=== PATIENT | male | born 1985 | race African-American/Black ===

== ENCOUNTER 2017-10-21 17:54 | Emergency (ER) | payer SELFPAY ==
[~2017-10-21] VITALS: Ht 193 cm; Wt 200.0 kg
[2017-10-21] MEDS ORDERED: IBUPROFEN 800MG TABLET PO ONE (19:00)
[2017-10-21 19:50] VITALS: BP 127/84
== END 2017-10-21 20:00 | disposition home or self-care (01) ==
LOC: ER 18:14
DX: M54.2 Cervicalgia (principal); M54.5 Low back pain; F12.10 Cannabis abuse, uncomplicated; V49.9XXA Car occupant (driver) (passenger) injured in unspecified traffic accident, initial encounter; Y93.89 Activity, other specified; Y92.410 Unspecified street and highway as the place of occurrence of the external cause; Y99.8 Other external cause status
CPT/HCPCS: 99283

== ENCOUNTER 2018-05-09 06:29 | Emergency (ER) | payer MEDICAID ==
[~2018-05-09] VITALS: Ht 177.8 cm; Wt 87.0 kg
[~2018-05-09 06:29] MED LIST: KEPP500 MT
[2018-05-09] MEDS ORDERED: LORAZEPAM 2MG/ML CPJ ONE (06:48)
[2018-05-09] MEDS ORDERED: LORAZEPAM 2MG/ML CPJ IV ONE (07:00)
[2018-05-09] MEDS ORDERED: SODIUM CHLORIDE 0.9% 1,000 ML IV ONE (07:00)
[2018-05-09 08:06] LABS: BASOPHILS % 0.7 % (0.0-2.0); EOSINOPHILS % 0.8 % (0.0-5.0); HEMATOCRIT. 42.6 % (42.0-52.0); HEMOGLOBIN. 14.3 g/dL (14.0-18.0); LYMPHOCYTES % 20.7 % (20.0-50.0); MEAN CORPUSCULAR HEMOGLOBIN 27.7 pg (28.0-32.0); MEAN CORPUSCULAR VOLUME 82.4 fL (80.0-94.0); MEAN PLATELET VOLUME 8.2 fl (7.4-10.4); MONOCYTES % 8.4 % (2.0-8.0); NEUTROPHILS % 69.4 % (40.0-76.0); PLATELET 282 x1000/uL (130-400); RED BLOOD CELL COUNT 5.17 mill/uL (4.7-6.1); RED CELL DISTRIBUTION WIDTH 15.4 % (11.6-14.6)
[2018-05-09 08:12] LABS: CHLORIDE 106 mEq/L (98-107)
[2018-05-09 08:19] LABS: ETHANOL BLOOD < 10 mg/dL
[2018-05-09 08:23] LABS: CREATINE KINASE 290 IU/L (39-308)
[2018-05-09 08:34] LABS: CARBAMAZEPINE < 0.5 ug/mL (4-12); PHENOBARBITAL < 2.1 ug/mL (15.0-40.0); VALPROIC ACID < 3.0 ug/mL (50-100)
[2018-05-09] MEDS ORDERED: SODIUM CHLORIDE 0.9% 1000ML BAG (SEPSIS BOLUS) IV ONE (08:45)
[2018-05-09] MEDS ORDERED: LEVETIRACETAM 500MG PREMIX 100 ML IV ONE (08:45)
[2018-05-09 09:44] LABS: CLARITY URINE CLEAR (CLEAR); COLOR URINE YELLOW (YELLOW); KETONES URINE NEGATIVE (NEGATIVE); LEUKOCYTE ESTERASE URINE NEGATIVE (NEGATIVE); NITRITE URINE NEGATIVE (NEGATIVE); OCCULT BLOOD URINE NEGATIVE (NEGATIVE); PH URINE 5.5 (4.5-8.0); PROTEIN URINE 1+ (NEGATIVE); UROBILINOGEN URINE 0.2 E.U./dL (0.2-1.0)
[2018-05-09 10:04] LABS: *AMPHETAMINES SCREEN URINE NEGATIVE (NEGATIVE); *BARBITURATES SCREEN URINE NEGATIVE (NEGATIVE); *BENZODIAZEPINES SCREEN URINE PRESUMTIVE POSITIVE (NEGATIVE); METHADONE URINE SCREEN NEGATIVE (NEGATIVE)
[2018-05-09 10:05] LABS: CANNABINOID URINE SCREEN PRESUMTIVE POSITIVE (NEGATIVE); OPIATES URINE SCREEN NEGATIVE (NEGATIVE); PHENCYCLIDINE URINE SCREEN NEGATIVE (NEGATIVE)
[2018-05-09 10:11] LABS: *COCAINE SCREEN URINE PRESUMTIVE POSITIVE (NEGATIVE)
[2018-05-09 12:00] VITALS: BP 119/68
== END 2018-05-09 12:16 | disposition home or self-care (01) ==
LOC: ER 06:38 → CANBEDREQ 15:25
DX: G40.909 Epilepsy, unspecified, not intractable, without status epilepticus (principal); F91.8 Other conduct disorders; F14.10 Cocaine abuse, uncomplicated; Z91.14 Patient's other noncompliance with medication regimen; F12.90 Cannabis use, unspecified, uncomplicated; R03.0 Elevated blood-pressure reading, without diagnosis of hypertension
CPT/HCPCS: 36415; 70450; 71045; 80053; 80156; 80165; 80184; 80185; 80305; 81003; 82550; 83605; 85025; 85610; 96365; 96375; 99285; G0482; J1953; J2060; J7030; Z7610

== ENCOUNTER 2018-06-01 18:24 | Emergency (ER) | payer MEDICAID ==
[~2018-06-01] VITALS: Ht 177.8 cm; Wt 90.0 kg
[2018-06-01] MEDS ORDERED: LEVETIRACETAM 1000MG/100ML 100 ML IV ONE (18:45)
[2018-06-01] MEDS ORDERED: SODIUM CHLORIDE 0.9% 1,000 ML IV ONE (18:45)
[2018-06-01 19:43] LABS: BASOPHILS % 0.8 % (0.0-2.0); EOSINOPHILS % 1.1 % (0.0-5.0); HEMATOCRIT. 39.6 % (42.0-52.0); HEMOGLOBIN. 12.9 g/dL (14.0-18.0); LYMPHOCYTES % 32.8 % (20.0-50.0); MEAN CORPUSCULAR HEMOGLOBIN 26.7 pg (28.0-32.0); MEAN CORPUSCULAR VOLUME 81.9 fL (80.0-94.0); MONOCYTES % 7.2 % (2.0-8.0); NEUTROPHILS % 58.1 % (40.0-76.0); PLATELET 263 x1000/uL (130-400); RED BLOOD CELL COUNT 4.83 mill/uL (4.7-6.1); RED CELL DISTRIBUTION WIDTH 14.8 % (11.6-14.6)
[2018-06-01 19:49] LABS: CHLORIDE 105 mEq/L (98-107)
[2018-06-01 19:56] LABS: ETHANOL BLOOD < 10 mg/dL
[2018-06-01 21:48] VITALS: BP 104/72
[2018-06-01 21:50] LABS: CLARITY URINE CLEAR (CLEAR); COLOR URINE YELLOW (YELLOW); KETONES URINE TRACE (NEGATIVE); LEUKOCYTE ESTERASE URINE NEGATIVE (NEGATIVE); NITRITE URINE NEGATIVE (NEGATIVE); OCCULT BLOOD URINE NEGATIVE (NEGATIVE); PROTEIN URINE 1+ (NEGATIVE); UROBILINOGEN URINE 0.2 E.U./dL (0.2-1.0)
[2018-06-01 22:04] LABS: *AMPHETAMINES SCREEN URINE NEGATIVE (NEGATIVE)
[2018-06-01 22:05] LABS: *BARBITURATES SCREEN URINE NEGATIVE (NEGATIVE); *BENZODIAZEPINES SCREEN URINE PRESUMTIVE POSITIVE (NEGATIVE); *COCAINE SCREEN URINE NEGATIVE (NEGATIVE); METHADONE URINE SCREEN NEGATIVE (NEGATIVE); OPIATES URINE SCREEN NEGATIVE (NEGATIVE)
[2018-06-01 22:07] LABS: CANNABINOID URINE SCREEN PRESUMTIVE POSITIVE (NEGATIVE); PHENCYCLIDINE URINE SCREEN NEGATIVE (NEGATIVE)
== END 2018-06-01 21:51 | disposition home or self-care (01) ==
LOC: ER 18:32
DX: G40.909 Epilepsy, unspecified, not intractable, without status epilepticus (principal); F12.10 Cannabis abuse, uncomplicated; Z79.899 Other long term (current) drug therapy
CPT/HCPCS: 36415; 80053; 80305; 81003; 85025; 96365; 96366; 99285; G0482; J1953; J7030

== ENCOUNTER 2018-06-14 11:03 | Emergency (ER) | payer MEDICAID ==
[~2018-06-14] VITALS: Ht 180.3 cm; Wt 90.0 kg
[2018-06-14] MEDS ORDERED: LEVETIRACETAM 1000MG/100ML 100 ML IV ONE (12:00)
[2018-06-14] MEDS ORDERED: SODIUM CHLORIDE 0.9% 1,000 ML IV ONE (12:00)
[2018-06-14 12:12] LABS: BASOPHILS % 0.9 % (0.0-2.0); EOSINOPHILS % 0.8 % (0.0-5.0); HEMATOCRIT. 42.2 % (42.0-52.0); HEMOGLOBIN. 13.7 g/dL (14.0-18.0); LYMPHOCYTES % 16.9 % (20.0-50.0); MEAN CORPUSCULAR HEMOGLOBIN 26.7 pg (28.0-32.0); MEAN CORPUSCULAR VOLUME 82.3 fL (80.0-94.0); MONOCYTES % 9.6 % (2.0-8.0); NEUTROPHILS % 71.8 % (40.0-76.0); PLATELET 254 x1000/uL (130-400); RED BLOOD CELL COUNT 5.12 mill/uL (4.7-6.1); RED CELL DISTRIBUTION WIDTH 14.8 % (11.6-14.6)
[2018-06-14 12:17] LABS: CHLORIDE 109 mEq/L (98-107)
[2018-06-14 12:22] LABS: ETHANOL BLOOD < 10 mg/dL
[2018-06-14] MEDS ORDERED: LORAZEPAM 2MG/ML CPJ ONE (12:48)
[2018-06-14 14:56] LABS: CLARITY URINE CLEAR (CLEAR); COLOR URINE YELLOW (YELLOW); KETONES URINE NEGATIVE (NEGATIVE); LEUKOCYTE ESTERASE URINE NEGATIVE (NEGATIVE); NITRITE URINE NEGATIVE (NEGATIVE); OCCULT BLOOD URINE 1+ (NEGATIVE); PROTEIN URINE 2+ (NEGATIVE); SPECIFIC GRAVITY URINE 1.015 (1.005-1.030); UROBILINOGEN URINE 0.2 E.U./dL (0.2-1.0)
[2018-06-14 15:11] LABS: *AMPHETAMINES SCREEN URINE NEGATIVE (NEGATIVE); *BARBITURATES SCREEN URINE NEGATIVE (NEGATIVE); *BENZODIAZEPINES SCREEN URINE NEGATIVE (NEGATIVE); *COCAINE SCREEN URINE PRESUMTIVE POSITIVE (NEGATIVE)
[2018-06-14 15:12] LABS: CANNABINOID URINE SCREEN PRESUMTIVE POSITIVE (NEGATIVE); METHADONE URINE SCREEN NEGATIVE (NEGATIVE); OPIATES URINE SCREEN NEGATIVE (NEGATIVE); PHENCYCLIDINE URINE SCREEN NEGATIVE (NEGATIVE)
[2018-06-14 16:50] VITALS: BP 138/61
== END 2018-06-14 16:51 | disposition home or self-care (01) ==
LOC: ER 12:18
DX: S00.512A Abrasion of oral cavity, initial encounter (principal); G40.909 Epilepsy, unspecified, not intractable, without status epilepticus; R51 Headache; F14.10 Cocaine abuse, uncomplicated; F12.10 Cannabis abuse, uncomplicated; Z91.14 Patient's other noncompliance with medication regimen; Z79.899 Other long term (current) drug therapy; X58.XXXA Exposure to other specified factors, initial encounter; Y93.89 Activity, other specified; Y92.89 Other specified places as the place of occurrence of the external cause; Y99.8 Other external cause status
CPT/HCPCS: 36415; 70450; 71045; 80053; 80305; 81003; 85025; 96365; 96366; 99285; A4217; G0482; J1953; J2060; J7030; Z7610

== ENCOUNTER 2018-06-27 09:04 | Emergency (ER) | payer MEDICAID ==
[~2018-06-27] VITALS: Ht 182.9 cm; Wt 100.0 kg
[2018-06-27] MEDS ORDERED: LEVETIRACETAM 500MG PREMIX 100 ML IV ONE (09:45)
[2018-06-27 10:00] LABS: BASOPHILS % 0.9 % (0.0-2.0); EOSINOPHILS % 0.5 % (0.0-5.0); HEMATOCRIT. 40.8 % (42.0-52.0); HEMOGLOBIN. 13.3 g/dL (14.0-18.0); LYMPHOCYTES % 17.3 % (20.0-50.0); MEAN CORPUSCULAR HEMOGLOBIN 26.6 pg (28.0-32.0); MEAN CORPUSCULAR VOLUME 81.8 fL (80.0-94.0); MEAN PLATELET VOLUME 7.3 fl (7.4-10.4); MONOCYTES % 9.4 % (2.0-8.0); NEUTROPHILS % 71.9 % (40.0-76.0); PLATELET 274 x1000/uL (130-400); RED BLOOD CELL COUNT 4.99 mill/uL (4.7-6.1); RED CELL DISTRIBUTION WIDTH 14.9 % (11.6-14.6)
[2018-06-27 10:08] LABS: CHLORIDE 106 mEq/L (98-107)
[2018-06-27 10:13] LABS: ETHANOL BLOOD < 10 mg/dL
[2018-06-27 10:26] LABS: CARBAMAZEPINE < 0.5 ug/mL (4-12); PHENOBARBITAL < 2.1 ug/mL (15.0-40.0); VALPROIC ACID < 3.0 ug/mL (50-100)
[2018-06-27 11:35] LABS: *AMPHETAMINES SCREEN URINE NEGATIVE (NEGATIVE)
[2018-06-27 11:36] LABS: *BARBITURATES SCREEN URINE NEGATIVE (NEGATIVE); *BENZODIAZEPINES SCREEN URINE PRESUMTIVE POSITIVE (NEGATIVE); *COCAINE SCREEN URINE PRESUMTIVE POSITIVE (NEGATIVE); METHADONE URINE SCREEN NEGATIVE (NEGATIVE); OPIATES URINE SCREEN NEGATIVE (NEGATIVE); PHENCYCLIDINE URINE SCREEN NEGATIVE (NEGATIVE)
[2018-06-27 11:37] LABS: CANNABINOID URINE SCREEN PRESUMTIVE POSITIVE (NEGATIVE)
[2018-06-27 14:27] VITALS: BP 127/71
== END 2018-06-27 14:28 | disposition home or self-care (01) ==
LOC: ER 09:35
DX: G40.901 Epilepsy, unspecified, not intractable, with status epilepticus (principal); F12.10 Cannabis abuse, uncomplicated; F14.10 Cocaine abuse, uncomplicated; Z78.1 Physical restraint status; Z91.14 Patient's other noncompliance with medication regimen
CPT/HCPCS: 36415; 80053; 80156; 80165; 80184; 80185; 80305; 85025; 96365; 99284; G0482; J1953; Z7610

== ENCOUNTER 2018-07-25 03:07 | Emergency (ER) | payer MEDICAID ==
[~2018-07-25] VITALS: Ht 182.9 cm; Wt 86.0 kg
[2018-07-25] MEDS ORDERED: SODIUM CHLORIDE 0.9% 1,000 ML IV ONE (03:56)
[2018-07-25] MEDS ORDERED: LORAZEPAM 2MG/ML CPJ IV ONE (04:00)
[2018-07-25] MEDS ORDERED: LEVETIRACETAM 500MG PREMIX 100 ML IV ONE (04:00)
[2018-07-25] MEDS ORDERED: LORAZEPAM 2MG/ML CPJ IM ONE (04:15)
[2018-07-25 04:32] LABS: BASOPHILS % 0.5 % (0.0-2.0); EOSINOPHILS % 0.7 % (0.0-5.0); HEMATOCRIT. 45.3 % (42.0-52.0); HEMOGLOBIN. 14.1 g/dL (14.0-18.0); LYMPHOCYTES % 35.8 % (20.0-50.0); MEAN CORPUSCULAR HEMOGLOBIN 26.7 pg (28.0-32.0); MEAN CORPUSCULAR VOLUME 85.6 fL (80.0-94.0); MEAN PLATELET VOLUME 8.6 fl (7.4-10.4); MONOCYTES % 9.4 % (2.0-8.0); NEUTROPHILS % 53.6 % (40.0-76.0); PLATELET 308 x1000/uL (130-400); RED BLOOD CELL COUNT 5.29 mill/uL (4.7-6.1); RED CELL DISTRIBUTION WIDTH 15.6 % (11.6-14.6)
[2018-07-25 04:45] LABS: CHLORIDE 109 mEq/L (98-107)
[2018-07-25 13:00] VITALS: BP 133/84
== END 2018-07-25 13:49 | disposition home or self-care (01) ==
LOC: ER 03:07
DX: G40.909 Epilepsy, unspecified, not intractable, without status epilepticus (principal); F91.8 Other conduct disorders; F12.10 Cannabis abuse, uncomplicated; Z78.1 Physical restraint status
CPT/HCPCS: 36415; 80053; 85025; 96365; 96366; 96372; 96375; 99285; J1953; J2060; J7030

== ENCOUNTER 2018-09-25 07:58 | Inpatient (IN) | payer MEDICAID ==
[~2018-09-25] VITALS: Ht 177.8 cm; Wt 79.4 kg
[2018-09-25] MEDS ORDERED: LEVETIRACETAM 500MG PREMIX 100 ML IV ONE (09:00)
[2018-09-25 09:17] LABS: BASOPHILS % 1.1 % (0.0-2.0); EOSINOPHILS % 0.8 % (0.0-5.0); HEMATOCRIT. 44.8 % (42.0-52.0); HEMOGLOBIN. 14.1 g/dL (14.0-18.0); LYMPHOCYTES % 15.9 % (20.0-50.0); MEAN CORPUSCULAR VOLUME 82.8 fL (80.0-94.0); MEAN PLATELET VOLUME 8.5 fl (7.4-10.4); MONOCYTES % 6.3 % (2.0-8.0); NEUTROPHILS % 75.9 % (40.0-76.0); PLATELET 279 x1000/uL (130-400); RED BLOOD CELL COUNT 5.42 mill/uL (4.7-6.1); RED CELL DISTRIBUTION WIDTH 15.8 % (11.6-14.6)
[2018-09-25 09:20] LABS: CHLORIDE 110 mEq/L (98-107)
[2018-09-25 09:22] LABS: PROTHROMBIN TIME 9.9 sec (9.1-11.1)
[2018-09-25 09:24] LABS: CLARITY URINE CLEAR (CLEAR); COLOR URINE YELLOW (YELLOW); KETONES URINE NEGATIVE (NEGATIVE); LEUKOCYTE ESTERASE URINE NEGATIVE (NEGATIVE); NITRITE URINE NEGATIVE (NEGATIVE); OCCULT BLOOD URINE 1+ (NEGATIVE); PROTEIN URINE 1+ (NEGATIVE); SPECIFIC GRAVITY URINE 1.014 (1.005-1.030); UROBILINOGEN URINE 0.2 E.U./dL (0.2-1.0)
[2018-09-25] MEDS ORDERED: ACETAMINOPHEN 325MG TABLET PO STA (10:24)
[2018-09-25] MEDS ORDERED: LORAZEPAM 2MG/ML CPJ IV ONE (11:45)
[2018-09-25] MEDS ORDERED: ACETAMINOPHEN 325MG TABLET PO PRN (12:15)
[2018-09-25] MEDS ORDERED: SODIUM CHLORIDE 0.9% 1,000 ML IV SCH (13:58)
[2018-09-25] MEDS ORDERED: IPRATROPIUM/ALBUTEROL 0.5-3(2.5)MG/3ML NEB INH PRN (14:00)
[2018-09-25] MEDS ORDERED: GUAIFENESIN 200MG/10ML SUGAR FREE UDC PO PRN (14:00)
[2018-09-25] MEDS ORDERED: DOCUSATE SODIUM 100MG CAPSULE PO PRN (14:00)
[2018-09-25] MEDS ORDERED: MAGNESIUM/ALUMINUM HYDROXIDE/SIMETHICONE 30ML UDC PO PRN (14:00)
[2018-09-25] MEDS ORDERED: CLONIDINE 0.1MG TABLET PO PRN (14:00)
[2018-09-25] MEDS ORDERED: ONDANSETRON HCL 4MG/2ML INJ IV PRN (14:00)
[2018-09-25 15:15] VITALS: BP 122/80
[2018-09-25 15:50] VITALS: BP 122/80
[2018-09-25] MEDS ORDERED: LORAZEPAM 2MG/ML CPJ IV PRN (16:15)
[2018-09-25] MEDS ORDERED: LEVETIRACETAM 250 MG in SODIUM CHLORIDE 0.9% 100 ML IV SCH (21:00)
[2018-09-26] VITALS: BP 139/73
[2018-09-26] MEDS: ACETAMINOPHEN 325MG TABLET PO PRN ×2 (02:08→22:38)
[2018-09-26 04:00] VITALS: BP 120/55
[2018-09-26 07:17] LABS: BASOPHILS % 0.4 % (0.0-2.0); EOSINOPHILS % 0.2 % (0.0-5.0); HEMATOCRIT. 43.5 % (42.0-52.0); HEMOGLOBIN. 14.2 g/dL (14.0-18.0); LYMPHOCYTES % 24.4 % (20.0-50.0); MEAN CORPUSCULAR HEMOGLOBIN 26.6 pg (28.0-32.0); MEAN CORPUSCULAR VOLUME 81.7 fL (80.0-94.0); MEAN PLATELET VOLUME 8.7 fl (7.4-10.4); MONOCYTES % 7.5 % (2.0-8.0); NEUTROPHILS % 67.5 % (40.0-76.0); PLATELET 260 x1000/uL (130-400); RED BLOOD CELL COUNT 5.33 mill/uL (4.7-6.1); RED CELL DISTRIBUTION WIDTH 15.9 % (11.6-14.6)
[2018-09-26 07:56] VITALS: BP 137/86
[2018-09-26] MEDS: THIAMINE HCL 100MG TABLET PO SCH (08:54)
[2018-09-26] MEDS: LEVETIRACETAM 500 MG in SODIUM CHLORIDE 0.9% 100 ML IV SCH ×2 (08:54→21:04)
[2018-09-26] MEDS: MULTIVITAMINS,THER W-MINERALS TABLET PO SCH (08:54)
[2018-09-26] MEDS: FOLIC ACID 1MG TABLET PO SCH (08:54)
[2018-09-26 09:39] LABS: CHLORIDE 107 mEq/L (98-107)
[2018-09-26 09:46] LABS: LDL CHOLESTEROL 115 mg/dL (5-100)
[2018-09-26 09:48] LABS: HDL CHOLESTEROL 43 mg/dL (40-59)
[2018-09-26 12:00] VITALS: BP 129/82
[2018-09-26 15:16] LABS: *AMPHETAMINES SCREEN URINE NEGATIVE (NEGATIVE)
[2018-09-26 15:17] LABS: *BARBITURATES SCREEN URINE NEGATIVE (NEGATIVE); *BENZODIAZEPINES SCREEN URINE NEGATIVE (NEGATIVE); *COCAINE SCREEN URINE PRESUMTIVE POSITIVE (NEGATIVE); CANNABINOID URINE SCREEN PRESUMTIVE POSITIVE (NEGATIVE); METHADONE URINE SCREEN NEGATIVE (NEGATIVE); OPIATES URINE SCREEN NEGATIVE (NEGATIVE)
[2018-09-26 15:19] LABS: PHENCYCLIDINE URINE SCREEN NEGATIVE (NEGATIVE)
[2018-09-26 15:47] VITALS: BP 106/76
[2018-09-26 20:00] VITALS: BP 131/86
[2018-09-27] VITALS: BP 120/67
[2018-09-27 04:00] VITALS: BP 117/71
[2018-09-27 06:17] LABS: *AMPHETAMINES SCREEN URINE NEGATIVE (NEGATIVE); *BARBITURATES SCREEN URINE NEGATIVE (NEGATIVE); *BENZODIAZEPINES SCREEN URINE NEGATIVE (NEGATIVE); *COCAINE SCREEN URINE PRESUMTIVE POSITIVE (NEGATIVE); METHADONE URINE SCREEN NEGATIVE (NEGATIVE); OPIATES URINE SCREEN NEGATIVE (NEGATIVE)
[2018-09-27 06:18] LABS: CANNABINOID URINE SCREEN PRESUMTIVE POSITIVE (NEGATIVE); PHENCYCLIDINE URINE SCREEN NEGATIVE (NEGATIVE)
[2018-09-27 08:00] VITALS: BP 166/89
[2018-09-27] MEDS: MULTIVITAMINS,THER W-MINERALS TABLET PO SCH (08:18)
[2018-09-27] MEDS: FOLIC ACID 1MG TABLET PO SCH (08:18)
[2018-09-27] MEDS: THIAMINE HCL 100MG TABLET PO SCH (08:18)
[2018-09-27] MEDS: LEVETIRACETAM 500 MG in SODIUM CHLORIDE 0.9% 100 ML IV SCH (09:02)
[2018-09-27 12:00] VITALS: BP 166/89
[2018-09-27] MEDS ORDERED: AZIT500T5 MT (13:36)
[2018-09-27] MEDS ORDERED: FOLI-43 PO (13:36)
[2018-09-27] MEDS ORDERED: THIA100T72 PO (13:36)
[2018-09-27] MEDS ORDERED: CYCLOBENZAPRINE 10MG TABLET PO NR (13:45)
[2018-09-27 16:00] VITALS: BP 135/96
[2018-09-27 16:09] VITALS: BP 135/96
== END 2018-09-27 18:00 | disposition home or self-care (01) | DRG 53 ==
LOC: ER 09:33 → ENRESERV 13:06 → 8WST 13:06
PROVIDERS: ADMIT Internal Medicine; ATTEND Internal Medicine
DX: G40.909 Epilepsy, unspecified, not intractable, without status epilepticus (principal); J18.1 Lobar pneumonia, unspecified organism; E87.8 Other disorders of electrolyte and fluid balance, not elsewhere classified; F19.10 Other psychoactive substance abuse, uncomplicated; F17.210 Nicotine dependence, cigarettes, uncomplicated; I10 Essential (primary) hypertension; Z91.19 Patient's noncompliance with other medical treatment and regimen
CPT/HCPCS: 36415; 70551; 71045; 80061; 80305; 82962; 83605; 84439; 84443; 84481; 93005; 93970; 96365; 96375; 99285; G0482; J1953; J2060; J7050

== ENCOUNTER 2018-12-31 14:49 | Emergency (ER) | payer MEDICAID ==
[~2018-12-31] VITALS: Ht 182.9 cm; Wt 100.0 kg
[~2018-12-31 14:49] MED LIST changes: +AZIT500T5 MT; +FOLI-43 PO; +THIA100T72 PO
[2018-12-31] MEDS ORDERED: LORAZEPAM 2MG/ML CPJ ONE (14:54)
[2018-12-31] MEDS ORDERED: SODIUM CHLORIDE 0.9% 1,000 ML IV ONE (15:04)
[2018-12-31] MEDS ORDERED: LEVETIRACETAM 1000MG/100ML 100 ML IV ONE (15:15)
[2018-12-31] MEDS ORDERED: LORAZEPAM 2MG/ML CPJ IV ONE (15:15)
[2018-12-31 15:30] LABS: BASOPHILS % 0.6 % (0.0-2.0); EOSINOPHILS % 0.6 % (0.0-5.0); HEMATOCRIT. 46.8 % (42.0-52.0); HEMOGLOBIN. 14.7 g/dL (14.0-18.0); LYMPHOCYTES % 50.5 % (20.0-50.0); MEAN CORPUSCULAR HEMOGLOBIN 26.5 pg (28.0-32.0); MEAN CORPUSCULAR VOLUME 84.6 fL (80.0-94.0); MEAN PLATELET VOLUME 8.6 fl (7.4-10.4); MONOCYTES % 12.9 % (2.0-8.0); NEUTROPHILS % 35.4 % (40.0-76.0); PLATELET 289 x1000/uL (130-400); RED BLOOD CELL COUNT 5.53 mill/uL (4.7-6.1); RED CELL DISTRIBUTION WIDTH 16.5 % (11.6-14.6)
[2018-12-31 15:36] LABS: CHLORIDE 107 mEq/L (98-107)
[2018-12-31 15:41] LABS: ETHANOL BLOOD < 10 mg/dL
[2018-12-31 17:10] LABS: CLARITY URINE CLEAR (CLEAR); COLOR URINE YELLOW (YELLOW); KETONES URINE TRACE (NEGATIVE); LEUKOCYTE ESTERASE URINE NEGATIVE (NEGATIVE); NITRITE URINE NEGATIVE (NEGATIVE); OCCULT BLOOD URINE 1+ (NEGATIVE); PROTEIN URINE 1+ (NEGATIVE); SPECIFIC GRAVITY URINE 1.016 (1.005-1.030); UROBILINOGEN URINE 0.2 E.U./dL (0.2-1.0)
[2018-12-31 17:20] LABS: CANNABINOID URINE SCREEN PRESUMTIVE POSITIVE (NEGATIVE); OPIATES URINE SCREEN NEGATIVE (NEGATIVE); PHENCYCLIDINE URINE SCREEN NEGATIVE (NEGATIVE)
[2018-12-31 17:21] LABS: *AMPHETAMINES SCREEN URINE NEGATIVE (NEGATIVE); *BARBITURATES SCREEN URINE NEGATIVE (NEGATIVE); *BENZODIAZEPINES SCREEN URINE NEGATIVE (NEGATIVE); *COCAINE SCREEN URINE PRESUMTIVE POSITIVE (NEGATIVE); METHADONE URINE SCREEN NEGATIVE (NEGATIVE)
[2018-12-31 20:01] VITALS: BP 128/84
== END 2018-12-31 20:12 | disposition home or self-care (01) ==
LOC: ER 14:49
DX: G40.909 Epilepsy, unspecified, not intractable, without status epilepticus (principal); F12.10 Cannabis abuse, uncomplicated; F14.10 Cocaine abuse, uncomplicated; F19.10 Other psychoactive substance abuse, uncomplicated; Z91.14 Patient's other noncompliance with medication regimen
CPT/HCPCS: 36415; 80053; 80305; 80320; 81003; 85025; 93005; 96365; 96366; 96375; 99284; J1953; J2060; J7030; Z7610; G0480

== ENCOUNTER 2024-02-16 14:19 | Emergency (ER) | payer MEDICAID, OTHER ==
[~2024-02-16] VITALS: Ht 185.4 cm; Wt 86.0 kg
[~2024-02-16 14:19] MED LIST changes: -AZIT500T5 MT; +AZIT500T8 MT
[2024-02-16 14:21] VITALS: O2SAT 99
[2024-02-16] MEDS ORDERED: LEVETIRACETAM 500MG PREMIX 100 ML IV ONE (14:45)
[2024-02-16] MEDS ORDERED: LEVETIRACETAM 1000MG PREMIX 100 ML IV ONE (14:45)
[2024-02-16] MEDS: LEVETIRACETAM 500MG/5ML CUP PO ONE (15:18)
[2024-02-16 15:38] LABS: BASOPHILS % 0.5 % (0.0-2.0); EOSINOPHILS % 1.4 % (0.0-5.0); HEMATOCRIT. 40.9 % (42.0-52.0); HEMOGLOBIN. 13.5 g/dL (14.0-18.0); LYMPHOCYTES % 39.2 % (20.0-50.0); MEAN CORPUSCULAR HEMOGLOBIN 27.2 pg (28.0-32.0); MEAN CORPUSCULAR HGB CONC 32.9 g/dL (31.0-37.0); MEAN CORPUSCULAR VOLUME 82.5 fL (80.0-94.0); MEAN PLATELET VOLUME 7.9 fl (7.4-10.4); MONOCYTES % 7.2 % (2.0-8.0); NEUTROPHILS % 51.7 % (40.0-76.0); PLATELET 258 x1000/uL (130-400); RED BLOOD CELL COUNT 4.96 mill/uL (4.7-6.1); RED CELL DISTRIBUTION WIDTH 16.9 % (11.6-14.6)
[2024-02-16 15:42] LABS: CHLORIDE 108 mEq/L (98-107); SODIUM 137 mEq/L (136-145)
[2024-02-16 15:43] LABS: CALCIUM 9.4 mg/dL (8.7-10.4); CARBON DIOXIDE 21 mEq/L (21-32)
[2024-02-16 15:48] LABS: CREATININE 0.8 mg/dL (0.6-1.3); GLUCOSE 115 mg/dL (70-105); UREA NITROGEN BLOOD 6 mg/dL (9-23)
[2024-02-16 15:51] LABS: ETHANOL BLOOD < 10 mg/dL (<10)
[2024-02-16 17:42] VITALS: BP 114/87; PULSE 77; RESP 17; TEMP 98.4
[2024-02-16] MEDS ORDERED: KEPP500 MT (18:42)
== END 2024-02-16 18:50 | disposition home or self-care (01) ==
LOC: ER 14:19
DX: R56.9 Unspecified convulsions (principal); F12.10 Cannabis abuse, uncomplicated; F14.10 Cocaine abuse, uncomplicated; E11.9 Type 2 diabetes mellitus without complications
CPT/HCPCS: 80048; 80320; 85025; 36415; 99283; J1953; G0480

== ENCOUNTER 2024-02-23 16:04 | Emergency (ER) | payer OTHER ==
[~2024-02-23] VITALS: Ht 182.9 cm; Wt 77.5 kg
[2024-02-23 16:28] VITALS: BP 122/77; PULSE 98; RESP 16; TEMP 98.9; O2SAT 99
[2024-02-23] MEDS ORDERED: KEPP250 MT (16:45)
== END 2024-02-23 17:06 | disposition left against medical advice (07) ==
LOC: ER 16:17
DX: R56.9 Unspecified convulsions (principal); E11.9 Type 2 diabetes mellitus without complications; F14.10 Cocaine abuse, uncomplicated; F12.10 Cannabis abuse, uncomplicated; Z91.148 Patient's other noncompliance with medication regimen for other reason
CPT/HCPCS: 99283

== ENCOUNTER 2024-02-25 01:18 | Emergency (ER) | payer MEDICAID, OTHER ==
[~2024-02-25] VITALS: Ht 177.8 cm; Wt 82.0 kg
[~2024-02-25 01:18] MED LIST changes: +KEPP250 MT
[2024-02-25 01:20] VITALS: O2SAT 96
[2024-02-25] MEDS ORDERED: KEPP250 MT (01:33)
[2024-02-25] MEDS: LEVETIRACETAM 500MG PREMIX 100 ML IV ONE (02:14)
[2024-02-25] MEDS: ACETAMINOPHEN 500MG TABLET PO ONE (03:31)
[2024-02-25 03:33] VITALS: BP 128/79; PULSE 82; RESP 18; TEMP 98.7
== END 2024-02-25 03:35 | disposition home or self-care (01) ==
LOC: ER 01:18
DX: R56.9 Unspecified convulsions (principal); E11.9 Type 2 diabetes mellitus without complications; Z76.0 Encounter for issue of repeat prescription
CPT/HCPCS: 99284; 96365; 82962; J1953

== ENCOUNTER 2024-03-04 12:49 | Emergency (ER) | payer OTHER ==
[~2024-03-04] VITALS: Ht 180.3 cm; Wt 100.0 kg
[2024-03-04 12:54] VITALS: O2SAT 96
[2024-03-04] MEDS: LEVETIRACETAM 500MG TABLET PO ONE (13:37)
[2024-03-04 14:12] LABS: BASOPHILS % 0.7 % (0.0-2.0); EOSINOPHILS % 0.1 % (0.0-5.0); HEMATOCRIT. 44.7 % (42.0-52.0); HEMOGLOBIN. 14.4 g/dL (14.0-18.0); LYMPHOCYTES % 18.5 % (20.0-50.0); MEAN CORPUSCULAR HGB CONC 32.3 g/dL (31.0-37.0); MEAN CORPUSCULAR VOLUME 83.6 fL (80.0-94.0); MEAN PLATELET VOLUME 8.1 fl (7.4-10.4); MONOCYTES % 6.1 % (2.0-8.0); NEUTROPHILS % 74.6 % (40.0-76.0); PLATELET 267 x1000/uL (130-400); RED BLOOD CELL COUNT 5.35 mill/uL (4.7-6.1); RED CELL DISTRIBUTION WIDTH 16.9 % (11.6-14.6); WHITE BLOOD COUNT 9.7 x1000/uL (4.5-11.0)
[2024-03-04] MEDS: LEVETIRACETAM 500MG PREMIX 100 ML IV ONE (14:19)
[2024-03-04 14:20] LABS: CHLORIDE 106 mEq/L (98-107); POTASSIUM 4.1 mEq/L (3.5-5.1); SODIUM 142 mEq/L (136-145)
[2024-03-04 14:21] LABS: CALCIUM 10.5 mg/dL (8.7-10.4); CARBON DIOXIDE 19 mEq/L (21-32)
[2024-03-04 14:26] LABS: ETHANOL BLOOD 13 mg/dL (<10); GLUCOSE 65 mg/dL (70-105); UREA NITROGEN BLOOD 10 mg/dL (9-23)
[2024-03-04 15:24] VITALS: BP 128/61; PULSE 73; RESP 16; TEMP 98.4
== END 2024-03-04 15:25 | disposition home or self-care (01) ==
LOC: ER 12:49
DX: R56.9 Unspecified convulsions (principal); Z79.899 Other long term (current) drug therapy
CPT/HCPCS: 80048; 80320; 83690; 85025; 36415; 99283; Z7610; G0480

== ENCOUNTER 2024-03-06 07:58 | Emergency (ER) | payer MEDICAID, OTHER ==
[~2024-03-06] VITALS: Ht 177.8 cm; Wt 90.0 kg
[2024-03-06 07:59] VITALS: O2SAT 99
[2024-03-06] MEDS: LEVETIRACETAM 1000MG PREMIX 100 ML IV ONE (08:15)
[2024-03-06 08:21] LABS: BASOPHILS % 0.3 % (0.0-2.0); EOSINOPHILS % 1.2 % (0.0-5.0); HEMATOCRIT. 44.8 % (42.0-52.0); HEMOGLOBIN. 13.9 g/dL (14.0-18.0); LYMPHOCYTES % 25.3 % (20.0-50.0); MEAN CORPUSCULAR HEMOGLOBIN 26.8 pg (28.0-32.0); MEAN CORPUSCULAR HGB CONC 31.1 g/dL (31.0-37.0); MEAN CORPUSCULAR VOLUME 86.1 fL (80.0-94.0); MEAN PLATELET VOLUME 7.8 fl (7.4-10.4); MONOCYTES % 7.3 % (2.0-8.0); NEUTROPHILS % 65.9 % (40.0-76.0); PLATELET 238 x1000/uL (130-400); RED CELL DISTRIBUTION WIDTH 16.7 % (11.6-14.6); WHITE BLOOD COUNT 10.2 x1000/uL (4.5-11.0)
[2024-03-06 08:31] LABS: CHLORIDE 110 mEq/L (98-107); POTASSIUM 4.1 mEq/L (3.5-5.1); SODIUM 140 mEq/L (136-145)
[2024-03-06 08:32] LABS: CARBON DIOXIDE 15 mEq/L (21-32)
[2024-03-06 08:33] LABS: CALCIUM 9.9 mg/dL (8.7-10.4)
[2024-03-06 08:37] LABS: CREATININE 0.9 mg/dL (0.6-1.3); GLUCOSE 102 mg/dL (70-105)
[2024-03-06 08:38] LABS: UREA NITROGEN BLOOD 6 mg/dL (9-23)
[2024-03-06 08:45] LABS: ETHANOL BLOOD < 10 mg/dL (<10)
[2024-03-06 10:05] VITALS: BP 124/67; PULSE 61; RESP 18; TEMP 98.2
[2024-03-06] MEDS ORDERED: ACETAMINOPHEN 325MG TABLET PO ONE (12:45)
[2024-03-06] MEDS ORDERED: ZOLPIDEM TARTRATE 5MG TABLET PO PRN (13:30)
[2024-03-06] MEDS ORDERED: ONDANSETRON HCL 4MG/2ML INJ IV PRN (13:30)
[2024-03-06] MEDS ORDERED: ACETAMINOPHEN 325MG TABLET PO PRN (13:30)
[2024-03-06] MEDS ORDERED: SODIUM CHLORIDE 0.9% 1,000 ML IV SCH (13:30)
[2024-03-06] MEDS ORDERED: LORAZEPAM 2MG/ML INJ IV PRN (13:30)
[2024-03-06] MEDS ORDERED: ENOXAPARIN 40MG/0.4ML SYR SUBCUT SCH (14:00)
[2024-03-06] MEDS ORDERED: LEVETIRACETAM 500MG PREMIX 100 ML IV SCH (21:00)
== END 2024-03-06 14:24 | disposition left against medical advice (07) ==
LOC: ER 07:58 → EDBEDREQTM 10:55 → EDBEDREQ 10:55 → ER 14:24 → CANBEDREQ 03-07 03:34
DX: R56.9 Unspecified convulsions (principal); F19.90 Other psychoactive substance use, unspecified, uncomplicated
CPT/HCPCS: 80048; 80320; 85025; 36415; 70450; 96365; 96366; 99285; J1953; G0480

== ENCOUNTER 2024-03-09 19:49 | Emergency (ER) | payer MEDICAID ==
[~2024-03-09] VITALS: Ht 182.9 cm; Wt 100.0 kg
[2024-03-09 20:01] VITALS: O2SAT 98
[2024-03-09] MEDS: LEVETIRACETAM 500MG TABLET PO ONE (20:15)
[2024-03-09 20:25] VITALS: TEMP 98.9
[2024-03-09 20:59] LABS: CHLORIDE 110 mEq/L (98-107); POTASSIUM 4.5 mEq/L (3.5-5.1); SODIUM 137 mEq/L (136-145)
[2024-03-09 21:00] LABS: CARBON DIOXIDE 23 mEq/L (21-32)
[2024-03-09 21:01] LABS: CALCIUM 9.2 mg/dL (8.7-10.4)
[2024-03-09 21:05] LABS: CREATININE 0.8 mg/dL (0.6-1.3)
[2024-03-09 21:06] LABS: ETHANOL BLOOD < 10 mg/dL (<10); GLUCOSE 82 mg/dL (70-105); UREA NITROGEN BLOOD 7 mg/dL (9-23)
[2024-03-09 21:28] LABS: BASOPHILS % 0.9 % (0.0-2.0); EOSINOPHILS % 0.4 % (0.0-5.0); HEMATOCRIT. 40.8 % (42.0-52.0); HEMOGLOBIN. 13.2 g/dL (14.0-18.0); LYMPHOCYTES % 30.9 % (20.0-50.0); MEAN CORPUSCULAR HEMOGLOBIN 26.9 pg (28.0-32.0); MEAN CORPUSCULAR HGB CONC 32.4 g/dL (31.0-37.0); MEAN CORPUSCULAR VOLUME 83.2 fL (80.0-94.0); MEAN PLATELET VOLUME 7.9 fl (7.4-10.4); MONOCYTES % 9.4 % (2.0-8.0); NEUTROPHILS % 58.4 % (40.0-76.0); PLATELET 221 x1000/uL (130-400); RED BLOOD CELL COUNT 4.91 mill/uL (4.7-6.1); RED CELL DISTRIBUTION WIDTH 15.9 % (11.6-14.6); WHITE BLOOD COUNT 6.8 x1000/uL (4.5-11.0)
[2024-03-09] MEDS ORDERED: KEPP500 MT (21:36)
[2024-03-09 22:15] VITALS: BP 128/70; PULSE 85; RESP 25
== END 2024-03-09 22:27 | disposition home or self-care (01) ==
LOC: ER 19:49
DX: R56.9 Unspecified convulsions (principal); Z91.148 Patient's other noncompliance with medication regimen for other reason
CPT/HCPCS: 36415; 80048; 80320; 85025; 99283; G0480

== ENCOUNTER 2024-03-13 13:55 | Emergency (ER) | payer MEDICAID ==
[~2024-03-13] VITALS: Ht 182.9 cm; Wt 82.0 kg
[2024-03-13 14:02] VITALS: O2SAT 95
[2024-03-13] MEDS: LEVETIRACETAM 500MG/5ML CUP PO ONE (15:52)
[2024-03-13] MEDS ORDERED: LEVE1000 MT (16:03)
[2024-03-13 16:26] VITALS: BP 141/99; PULSE 94; RESP 20; TEMP 97.3
== END 2024-03-13 16:43 | disposition home or self-care (01) ==
LOC: ER 13:55
DX: R56.9 Unspecified convulsions (principal); Z79.899 Other long term (current) drug therapy
CPT/HCPCS: 99283; Z7610 ×2

== ENCOUNTER 2024-03-19 16:47 | Emergency (ER) | payer MEDICAID ==
[~2024-03-19] VITALS: Ht 182.9 cm; Wt 80.0 kg
[~2024-03-19 16:47] MED LIST changes: +LEVE1000 MT
[2024-03-19 16:52] VITALS: BP_DIAS 98; PULSE 108; RESP 20; TEMP 97.9; O2SAT 99
[2024-03-19] MEDS: LIDOCAINE HCL/PF 1% 10 MG/ML 5ML VIAL INFIL ONE (17:30)
[2024-03-19] MEDS: TETANUS, DIPHTHERIA, PERTUSSIS VAC/PF 0.5ML (>10YR OLD) IM ONE (17:30)
[2024-03-19] MEDS: BACITRACIN ZINC OINT UDPKT TOP ONE (17:30)
[2024-03-19 18:17] VITALS: BP_SYST 144
[2024-03-20] MEDS ORDERED: KEPP500 MT (13:04)
== END 2024-03-19 21:40 ==
LOC: ER 16:47
DX: S41.111A Laceration without foreign body of right upper arm, initial encounter (principal); Z79.899 Other long term (current) drug therapy; X58.XXXA Exposure to other specified factors, initial encounter; Y93.89 Activity, other specified; Y92.89 Other specified places as the place of occurrence of the external cause; Y99.8 Other external cause status
CPT/HCPCS: 90715; 12007; 90471; 99283; J3490; Z7610 ×2

== ENCOUNTER 2024-03-20 02:37 | Inpatient (IN) | payer MEDICAID ==
[~2024-03-20] VITALS: Ht 182.9 cm; Wt 82.1 kg
[2024-03-20] MEDS: LEVETIRACETAM 500MG PREMIX 100 ML IV ONE ×2 (04:02→04:50)
[2024-03-20] MEDS: LORAZEPAM 2MG/ML INJ IV ONE (04:12)
[2024-03-20 05:04] LABS: BASOPHILS % 0.8 % (0.0-2.0); HEMATOCRIT. 36.8 % (42.0-52.0); HEMOGLOBIN. 11.9 g/dL (14.0-18.0); LYMPHOCYTES % 13.5 % (20.0-50.0); MEAN CORPUSCULAR HEMOGLOBIN 26.6 pg (28.0-32.0); MEAN CORPUSCULAR HGB CONC 32.2 g/dL (31.0-37.0); MEAN CORPUSCULAR VOLUME 82.8 fL (80.0-94.0); MEAN PLATELET VOLUME 7.6 fl (7.4-10.4); MONOCYTES % 8.7 % (2.0-8.0); PLATELET 236 x1000/uL (130-400); RED BLOOD CELL COUNT 4.45 mill/uL (4.7-6.1); RED CELL DISTRIBUTION WIDTH 16.2 % (11.6-14.6); WHITE BLOOD COUNT 14.5 x1000/uL (4.5-11.0)
[2024-03-20 05:17] LABS: CHLORIDE 105 mEq/L (98-107); SODIUM 136 mEq/L (136-145)
[2024-03-20 05:18] LABS: CALCIUM 9.2 mg/dL (8.7-10.4); CARBON DIOXIDE 24 mEq/L (21-32)
[2024-03-20 05:23] LABS: CREATININE 1.1 mg/dL (0.6-1.3); GLUCOSE 114 mg/dL (70-105); UREA NITROGEN BLOOD 15 mg/dL (9-23)
[2024-03-20 05:39] LABS: ETHANOL BLOOD < 10 mg/dL (<10)
[2024-03-20 05:56] LABS: CLARITY URINE CLOUDY (CLEAR); COLOR URINE DARK YELLOW (YELLOW); GLUCOSE URINE NEGATIVE (NEGATIVE); KETONES URINE 1+ (NEGATIVE); LEUKOCYTE ESTERASE URINE NEGATIVE (NEGATIVE); NITRITE URINE NEGATIVE (NEGATIVE); OCCULT BLOOD URINE NEGATIVE (NEGATIVE); PH URINE 5.5 (4.5-8.0); PROTEIN URINE 2+ (NEGATIVE); SPECIFIC GRAVITY URINE 1.022 (1.005-1.030)
[2024-03-20 06:14] LABS: *AMPHETAMINES SCREEN URINE NEGATIVE (NEGATIVE); *BARBITURATES SCREEN URINE NEGATIVE (NEGATIVE); *COCAINE SCREEN URINE PRESUMPTIVE POSITIVE (NEGATIVE); ECSTASY MDMA SCREEN URINE NEGATIVE (NEGATIVE); OPIATES URINE SCREEN NEGATIVE (NEGATIVE)
[2024-03-20 06:29] LABS: *BENZODIAZEPINES SCREEN URINE NEGATIVE (NEGATIVE); METHADONE URINE SCREEN NEGATIVE (NEGATIVE); PHENCYCLIDINE URINE SCREEN NEGATIVE (NEGATIVE)
[2024-03-20 07:38] LABS: SQUAMOUS EPITHELIAL CELL URINE FEW /lpf (RARE/1+)
[2024-03-20 07:39] LABS: RBC URINE 0-2 /hpf (0-2); WBC URINE 0-2 /hpf (0-2)
[2024-03-20 07:40] LABS: BACTERIA URINE NONE SEEN
[2024-03-20 10:15] VITALS: BP 148/75; PULSE 88; RESP 18; TEMP 97.8
[2024-03-20] MEDS ORDERED: LORAZEPAM 2MG/ML INJ IV PRN (10:45)
[2024-03-20] MEDS ORDERED: ACETAMINOPHEN 325MG TABLET PO PRN (10:45)
[2024-03-20] MEDS ORDERED: ONDANSETRON HCL 4MG/2ML INJ IV PRN (10:45)
[2024-03-20] MEDS ORDERED: KEPP500 MT (13:04)
[2024-03-20 15:08] VITALS: BP 145/66; PULSE 78; TEMP 97.8; O2SAT 97
[2024-03-20] MEDS ORDERED: LEVETIRACETAM 500MG TABLET PO SCH (21:00)
== END 2024-03-20 17:07 | DRG 53 ==
LOC: ER 02:37 → 7EST 06:42
PROVIDERS: ADMIT Internal Medicine; ATTEND Internal Medicine
DX: R56.9 Unspecified convulsions (principal); F17.200 Nicotine dependence, unspecified, uncomplicated; Z79.899 Other long term (current) drug therapy
CPT/HCPCS: 36415; 80048; 80305; 80320; 81003; 85025; 93005; 99285; J1953; J2060; G0480